=== PATIENT | male | born 1960 | race Caucasian/White ===

== ENCOUNTER → 2017-03-08 | Outpatient (CLI) | payer BC ==
--- NOTE | 2017-03-09 08:08 | REP ---
Clinical: Lung screening. History smoking. Technique: Axial noncontrast low-dose images from the thoracic inlet to the upper abdomen using lung screening technique. Comparison: Chest CT dated 02/07/2016. Findings: Lung ruiz are symmetric and relatively normal. No pulmonary nodule, consolidation, mass or suspicious abnormality appreciated. No pleural effusion. Tracheobronchial tree is patent. Impression: Lung-RADS category I. No suspicious abnormality or lesions appreciated. Recommendations include annual screening with low-dose CT. Signed by Jason Ny MD 03/09/2017 07:59 A
== END ==
LOC: M RAD 10:57
PROVIDERS: ATTEND Family Medicine
DX: Z87.891 Personal history of nicotine dependence (principal)

== ENCOUNTER → 2017-03-21 | Outpatient (CLI) | payer BC ==
[2017-03-21 14:26] LABS: ALBUMIN 4.1 GM/DL (3.2-5.2); ALBUMIN/GLOBULIN RATIO 1.21 (1.00-1.93); ALKALINE PHOSPHATASE 66 U/L (45-117); ALT/SGPT 110 U/L (12-78); ANION GAP 9 MEQ/L (8-16); AST/SGOT 69 U/L (15-37); BILIRUBIN,TOTAL 0.8 MG/DL (0.2-1.0); BLOOD UREA NITROGEN 16 MG/DL (7-18); CALCIUM LEVEL 9.4 MG/DL (8.5-10.1); CARBON DIOXIDE LEVEL 28 MEQ/L (21-32); CHLORIDE LEVEL 102 MEQ/L (98-107); CHOLESTEROL LEVEL 197 MG/DL (<200); CREATININE FOR GFR 0.99 MG/DL (0.70-1.30); GLOMERULAR FILTRATION RATE > 60.0 (>56); GLUCOSE, FASTING 115 MG/DL (70-105); POTASSIUM SERUM 4.8 MEQ/L (3.5-5.1); SODIUM LEVEL 139 MEQ/L (136-145); TOTAL PROTEIN 7.5 GM/DL (6.4-8.2); TRIGLYCERIDES LEVEL 233 MG/DL (<150)
[2017-03-23 00:06] LABS: Lyme Disease IgG/IgM Antibodie <0.91 ISR (0.00-0.90); Lyme Disease IgM Ab Quantitati <0.80 index (0.00-0.79)
== END ==
LOC: M SMT 08:39
PROVIDERS: ATTEND Physician Assistant Medical
DX: E78.5 Hyperlipidemia, unspecified (principal); E55.9 Vitamin D deficiency, unspecified; R73.01 Impaired fasting glucose; M79.1 Myalgia

== ENCOUNTER → 2018-01-04 | Outpatient (CLI) | payer BC ==
[2018-01-04 11:12] LABS: ANION GAP 9 MEQ/L (8-16); BLOOD UREA NITROGEN 19 MG/DL (7-18); CALCIUM LEVEL 9.1 MG/DL (8.5-10.1); CARBON DIOXIDE LEVEL 24 MEQ/L (21-32); CHLORIDE LEVEL 107 MEQ/L (98-107); CHOLESTEROL LEVEL 199 MG/DL (<200); CHOLESTEROL RISK RATIO 2.926 (<5); CREATININE FOR GFR 0.92 MG/DL (0.70-1.30); GLOMERULAR FILTRATION RATE > 60.0 (>56); GLUCOSE, FASTING 106 MG/DL (70-100); HDL CHOLESTEROL 68 MG/DL (>40); LDL CHOLESTEROL 103.4 MG/DL (<100); NON-HDL-C 131 MG/DL; POTASSIUM SERUM 4.5 MEQ/L (3.5-5.1); PSA SCREENING 2.23 NG/ML (< 4.0); SODIUM LEVEL 140 MEQ/L (136-145); TRIGLYCERIDES LEVEL 138 MG/DL (<150)
[2018-01-04 11:14] LABS: ESTIMATED AVERAGE GLUCOSE 117 MG/DL (60-110); HEMOGLOBIN A1c 5.7 %
== END ==
LOC: M SMT 09:00
DX: R73.01 Impaired fasting glucose (principal); R39.12 Poor urinary stream; E78.5 Hyperlipidemia, unspecified

== ENCOUNTER → 2019-06-13 | Outpatient (CLI) | payer BC ==
[2019-06-13 13:43] LABS: BASO % 0.4 % (0.0-1.0); EOS # 0.2 10^3/uL (0.0-0.50); HEMATOCRIT 45.3 % (42.0-52.0); HEMOGLOBIN 15.6 g/dl (13.5-17.5); LYMPH # 2.7 10^3/uL (1.5-4.5); LYMPH % 33.5 % (24.0-44.0); MEAN CORPUSCULAR HEMOGLOBIN 31.6 pg (27.0-33.0); MEAN CORPUSCULAR HGB CONC 34.4 g/dl (32.0-36.5); MEAN CORPUSCULAR VOLUME 91.9 fl (80.0-96.0); MONO # 0.6 10^3/uL (0.0-0.8); MONO % 7.6 % (0.0-5.0); NEUTROPHILS # 4.5 10^3/uL (1.8-7.7); NEUTROPHILS % 55.1 % (36.0-66.0); PLATELET COUNT, AUTOMATED 207 10^3/uL (150-450); RED BLOOD COUNT 4.93 10^6/uL (4.30-6.10); WHITE BLOOD COUNT 8.1 10^3/uL (4.0-10.0)
[2019-06-13 14:01] LABS: ALBUMIN 4.2 GM/DL (3.2-5.2); ALT/SGPT 62 U/L (12-78); BILIRUBIN,TOTAL 0.9 MG/DL (0.2-1.0); BLOOD UREA NITROGEN 15 MG/DL (7-18); CALCIUM LEVEL 9.5 MG/DL (8.5-10.1); CARBON DIOXIDE LEVEL 27 MEQ/L (21-32); CHLORIDE LEVEL 106 MEQ/L (98-107); CHOLESTEROL LEVEL 168 MG/DL (<200); CHOLESTEROL RISK RATIO 3.054 (<5); CREATININE FOR GFR 1.03 MG/DL (0.70-1.30); GLOMERULAR FILTRATION RATE > 60.0 (>56); GLUCOSE, FASTING 98 MG/DL (70-100); HDL CHOLESTEROL 55 MG/DL (>40); LDL CHOLESTEROL 84 MG/DL (<100); NON-HDL-C 113 MG/DL; POTASSIUM SERUM 4.6 MEQ/L (3.5-5.1); SODIUM LEVEL 138 MEQ/L (136-145); TOTAL 25(OH) VITAMIN D 54.8 NG/ML (30.0-100.0); TOTAL PROTEIN 7.2 GM/DL (6.4-8.2); TRIGLYCERIDES LEVEL 145 MG/DL (<150)
[2019-06-13 14:17] LABS: HEMOGLOBIN A1c 5.5 %
== END ==
LOC: M SMT 09:54
PROVIDERS: ATTEND Physician Assistant Medical
DX: Z00.00 Encounter for general adult medical examination without abnormal findings (principal); I10 Essential (primary) hypertension; R39.12 Poor urinary stream; E55.9 Vitamin D deficiency, unspecified; F41.3 Other mixed anxiety disorders; E78.5 Hyperlipidemia, unspecified; R73.01 Impaired fasting glucose; Z12.5 Encounter for screening for malignant neoplasm of prostate
CPT/HCPCS: 36415; 80053; 80061; 82306; 83036; 85025; G0103

== ENCOUNTER → 2019-10-02 | Outpatient (CLI) | payer BC ==
--- NOTE | 2019-10-03 05:25 | REP ---
Clinical: Lung screening. History smoking. Comparison: 03/08/2017 Technique: Axial low-dose noncontrast images from the thoracic inlet to the upper abdomen using lung screening technique. Findings: The lung ruiz are well-aerated. No consolidation, significant nodule or mass lesion is appreciated. No pleural effusion/reaction or pneumothorax. Tracheobronchial tree is patent. Mediastinum demonstrates mild atherosclerotic changes of the coronary arteries without cardiomegaly. Impression: Lung-RADS category I. No nodule or suspicious abnormality. Management recommendations include annual low-dose CT evaluation. Electronically Signed by Jason Ny MD 10/03/2019 05:17 A
== END ==
LOC: M RAD 08:44
PROVIDERS: ATTEND Family Medicine
DX: F17.200 Nicotine dependence, unspecified, uncomplicated (principal)

== ENCOUNTER → 2020-08-21 | Outpatient (CLI) | payer BC ==
[~2020-08-21] MED LIST: ALPR0.5T3 PO; HYDR200T3 PO; INFL10VL IV; LISI10TA4 PO; OMEP-221 PO; SIMV20TA22 PO; TERA5CAP3 PO; VITA50005 PO
[2020-08-21 11:34] LABS: BASO # 0.1 10^3/uL (0.0-0.2); BASO % 0.6 % (0.0-1.0); EOS # 0.3 10^3/uL (0.0-0.5); EOS % 2.7 % (0.0-3.0); HEMATOCRIT 45.2 % (42.0-52.0); HEMOGLOBIN 15.4 g/dl (13.5-17.5); LYMPH # 2.9 10^3/uL (1.5-5.0); LYMPH % 29.2 % (24.0-44.0); MEAN CORPUSCULAR HEMOGLOBIN 31.9 pg (27.0-33.0); MEAN CORPUSCULAR HGB CONC 34.1 g/dl (32.0-36.5); MEAN CORPUSCULAR VOLUME 93.6 fl (80.0-96.0); MONO # 0.7 10^3/uL (0.0-0.8); NEUTROPHILS % 59.8 % (36.0-66.0); PLATELET COUNT, AUTOMATED 213 10^3/uL (150-450); RED BLOOD COUNT 4.83 10^6/uL (4.30-6.10); WHITE BLOOD COUNT 10.1 10^3/uL (4.0-10.0)
[2020-08-21 11:59] LABS: ALT/SGPT 53 U/L (12-78); BILIRUBIN,TOTAL 0.4 MG/DL (0.2-1.0); BLOOD UREA NITROGEN 15 MG/DL (7-18); CALCIUM LEVEL 9.3 MG/DL (8.8-10.2); CARBON DIOXIDE LEVEL 29 MEQ/L (21-32); CHLORIDE LEVEL 105 MEQ/L (98-107); CHOLESTEROL LEVEL 182 MG/DL (<200); CHOLESTEROL RISK RATIO 3.714 (<5); CREATININE FOR GFR 0.92 MG/DL (0.70-1.30); GLOMERULAR FILTRATION RATE > 60.0 (>49); GLUCOSE, FASTING 103 MG/DL (70-100); HDL CHOLESTEROL 49 MG/DL (>40); HEMOGLOBIN A1c 5.1 %; LDL CHOLESTEROL 99 MG/DL (<100); NON-HDL-C 133 MG/DL; POTASSIUM SERUM 4.3 MEQ/L (3.5-5.1); SODIUM LEVEL 140 MEQ/L (136-145); TRIGLYCERIDES LEVEL 171 MG/DL (<150)
== END ==
LOC: M PLALAB 09:09
PROVIDERS: ATTEND Nurse Practitioner Family
DX: I10 Essential (primary) hypertension (principal)

== ENCOUNTER → 2021-03-03 | Outpatient (CLI) | payer BC ==
[~2021-03-03] MED LIST changes: +LISI10TA22 PO; -LISI10TA4 PO
--- NOTE | 2021-03-04 18:49 | REP ---
INDICATION: PERSONAL H/O NICOTINE DEPENDENCE COMPARISON: 10/02/2019, 03/08/2017 TECHNIQUE: Axial noncontrast images from the thoracic inlet to the upper abdomen using low-dose lung screening technique (LDCT). FINDINGS: Bilateral lung ruiz are well aerated and essentially clear/stable. No acute consolidation, significant nodule, or mass lesion. No effusion. No pneumothorax. Tracheobronchial tree is patent. IMPRESSION: Lung rads category 1. No suspicious lesion identified. Stable examination. Management recommendations include annual low-dose CT surveillance. <Electronically signed by Jason Ny > 03/04/21 [id number]
== END ==
LOC: M RAD 10:47
PROVIDERS: ATTEND Nurse Practitioner Family
DX: Z87.891 Personal history of nicotine dependence (principal)

== ENCOUNTER → 2021-09-28 | Outpatient (CLI) | payer BC ==
[~2021-09-28] MED LIST changes: +ERGO500029 PO; -VITA50005 PO
[2021-09-28 14:39] LABS: ALT/SGPT 89 U/L (12-78); BILIRUBIN,TOTAL 0.7 MG/DL (0.2-1.0); BLOOD UREA NITROGEN 14 MG/DL (7-18); CALCIUM LEVEL 9.5 MG/DL (8.8-10.2); CARBON DIOXIDE LEVEL 27 MEQ/L (21-32); CHLORIDE LEVEL 105 MEQ/L (98-107); CHOLESTEROL LEVEL 175 MG/DL (<200); CHOLESTEROL RISK RATIO 2.966 (<5); CREATININE FOR GFR 0.98 MG/DL (0.70-1.30); GLOMERULAR FILTRATION RATE > 60.0 (>49); GLUCOSE, FASTING 103 MG/DL (70-100); HDL CHOLESTEROL 59 MG/DL (>40); NON-HDL-C 116 MG/DL; POTASSIUM SERUM 4.3 MEQ/L (3.5-5.1); SODIUM LEVEL 140 MEQ/L (136-145); TRIGLYCERIDES LEVEL 202 MG/DL (<150)
[2021-09-28 14:40] LABS: LDL CHOLESTEROL 76 MG/DL (<100); TOTAL PROTEIN 7.3 GM/DL (6.4-8.2)
== END ==
LOC: M PLALAB 09:07
PROVIDERS: ATTEND Nurse Practitioner Family
DX: I10 Essential (primary) hypertension (principal)

== ENCOUNTER → 2021-12-28 | Outpatient (CLI) | payer BC ==
[~2021-12-28] MED LIST changes: -OMEP-221 PO; +OMEP40CA5 PO
== END ==
LOC: M RAD 09:38
PROVIDERS: ATTEND Nurse Practitioner Family
DX: R05.1 Acute cough (principal)

== ENCOUNTER → 2022-04-06 | Outpatient (CLI) | payer BC | LOC: M RAD 08:19 | PROVIDERS: ATTEND Nurse Practitioner Family | DX: Z12.2 Encounter for screening for malignant neoplasm of respiratory organs (principal); F17.210 Nicotine dependence, cigarettes, uncomplicated ==

== ENCOUNTER → 2022-09-30 | Outpatient (CLI) | payer BC ==
[2022-09-30 14:56] LABS: BASO % 0.5 % (0.0-1.0); EOS # 0.2 10^3/uL (0.0-0.5); EOS % 2.2 % (0.0-3.0); HEMATOCRIT 43.3 % (42.0-52.0); HEMOGLOBIN 14.6 g/dl (13.5-17.5); LYMPH # 2.7 10^3/uL (1.5-5.0); LYMPH % 33.3 % (24.0-44.0); MEAN CORPUSCULAR HEMOGLOBIN 32.2 pg (27.0-33.0); MEAN CORPUSCULAR HGB CONC 33.7 g/dl (32.0-36.5); MEAN CORPUSCULAR VOLUME 95.6 fl (80.0-96.0); MONO # 0.6 10^3/uL (0.0-0.8); MONO % 7.4 % (2.0-8.0); NEUTROPHILS # 4.5 10^3/uL (1.5-8.5); NEUTROPHILS % 56.1 % (36.0-66.0); PLATELET COUNT, AUTOMATED 190 10^3/uL (150-450); RED BLOOD COUNT 4.53 10^6/uL (4.30-6.10); WHITE BLOOD COUNT 8.1 10^3/uL (4.0-10.0)
[2022-09-30 15:34] LABS: ALBUMIN 4.1 GM/DL (3.2-5.2); ALT/SGPT 64 U/L (12-78); BILIRUBIN,TOTAL 0.5 MG/DL (0.2-1.0); BLOOD UREA NITROGEN 18 MG/DL (7-18); CALCIUM LEVEL 9.4 MG/DL (8.8-10.2); CARBON DIOXIDE LEVEL 24 MEQ/L (21-32); CHLORIDE LEVEL 105 MEQ/L (98-107); CHOLESTEROL LEVEL 183 MG/DL (<200); CHOLESTEROL RISK RATIO 3.155 (<5); CREATININE FOR GFR 0.91 MG/DL (0.70-1.30); GLOMERULAR FILTRATION RATE > 60.0 (>49); GLUCOSE, FASTING 109 MG/DL (70-100); HDL CHOLESTEROL 58 MG/DL (>40); LDL CHOLESTEROL 87 MG/DL (<100); NON-HDL-C 125 MG/DL; POTASSIUM SERUM 4.6 MEQ/L (3.5-5.1); SODIUM LEVEL 136 MEQ/L (136-145); TOTAL PROTEIN 7.4 GM/DL (6.4-8.2); TRIGLYCERIDES LEVEL 191 MG/DL (<150)
== END ==
LOC: M PLALAB 09:12
PROVIDERS: ATTEND Nurse Practitioner Family
DX: I10 Essential (primary) hypertension (principal)

== ENCOUNTER → 2022-10-27 | Outpatient (CLI) | payer BC ==
[2022-10-27 14:21] LABS: HEMOGLOBIN A1c 4.9 % (4.0-6.0)
== END ==
LOC: M PLALAB 09:24
PROVIDERS: ATTEND Nurse Practitioner Family
DX: R73.01 Impaired fasting glucose (principal)

== ENCOUNTER → 2023-03-15 | Outpatient (CLI) | payer BC ==
[2023-03-15 14:30] LABS: ALBUMIN 4.3 G/DL (3.2-5.2); ALKALINE PHOSPHATASE 55 U/L (46-116); ALT/SGPT 79 U/L (7.0-40); AST/SGOT 55 U/L (<34); BILIRUBIN,TOTAL 0.8 MG/DL (0.3-1.2); BLOOD UREA NITROGEN 17 MG/DL (9-23); CALCIUM LEVEL 9.9 MG/DL (8.3-10.6); CARBON DIOXIDE LEVEL 26 MMOL/L (20-31); CHLORIDE LEVEL 102 MMOL/L (98-107); CHOLESTEROL LEVEL 181 MG/DL (<200); CHOLESTEROL RISK RATIO 3.47 (<5); CREATININE FOR GFR 0.86 MG/DL (0.70-1.30); GLOMERULAR FILTRATION RATE > 60.0 (>49); GLUCOSE, FASTING 74 MG/DL (74-106); HDL CHOLESTEROL 52.1 MG/DL (>40); LDL CHOLESTEROL 83.9 MG/DL (<100); NON-HDL-C 128.9 MG/DL; POTASSIUM SERUM 4.3 MMOL/L (3.5-5.1); SODIUM LEVEL 136 MMOL/L (136-145); TOTAL PROTEIN 7.5 G/DL (5.7-8.2); TRIGLYCERIDES LEVEL 225 MG/DL (<150)
[2023-03-16 23:07] LABS: PSA TOTAL 3.7 ng/mL (0.0-4.0)
== END ==
LOC: M PLALAB 11:30
PROVIDERS: ATTEND Registered Nurse
DX: R97.20 Elevated prostate specific antigen [PSA] (principal); I10 Essential (primary) hypertension; E55.9 Vitamin D deficiency, unspecified; E78.2 Mixed hyperlipidemia

== ENCOUNTER → 2023-03-29 | Outpatient (CLI) | payer BC | LOC: M RAD 09:31 | PROVIDERS: ATTEND Nurse Practitioner Family | DX: Z12.2 Encounter for screening for malignant neoplasm of respiratory organs (principal); F17.200 Nicotine dependence, unspecified, uncomplicated ==

== ENCOUNTER → 2024-04-03 | Outpatient (CLI) | payer BC ==
[~2024-04-03] MED LIST changes: -HYDR200T3 PO; +HYDR200T46 PO
== END ==
LOC: M RAD 09:09
PROVIDERS: ATTEND Registered Nurse
DX: Z87.891 Personal history of nicotine dependence (principal)

== ENCOUNTER → 2024-04-24 | Outpatient (CLI) | payer BC ==
[~2024-04-24] MED LIST changes: +LOSA25TA13 PO; +PROA1AER2 INH
[2024-04-24 13:29] LABS: BASO % 0.5 % (0.0-1.0); EOS # 0.2 10^3/uL (0.0-0.5); EOS % 1.9 % (0.0-3.0); HEMOGLOBIN 15.5 g/dl (13.5-17.5); LYMPH # 2.2 10^3/uL (1.5-5.0); MEAN CORPUSCULAR HEMOGLOBIN 31.9 pg (27.0-33.0); MEAN CORPUSCULAR HGB CONC 34.4 g/dl (32.0-36.5); MEAN CORPUSCULAR VOLUME 92.6 fl (80.0-96.0); MONO # 0.7 10^3/uL (0.0-0.8); MONO % 8.9 % (2.0-8.0); NEUTROPHILS # 5.2 10^3/uL (1.5-8.5); NEUTROPHILS % 62.3 % (36.0-66.0); PLATELET COUNT, AUTOMATED 211 10^3/uL (150-450); RED BLOOD COUNT 4.86 10^6/uL (4.30-6.10); WHITE BLOOD COUNT 8.3 10^3/uL (4.0-10.0)
[2024-04-24 14:05] LABS: ALBUMIN 4.2 G/DL (3.2-5.2); ALKALINE PHOSPHATASE 61 U/L (46-116); ALT/SGPT 56 U/L (7.0-40); AST/SGOT 36 U/L (<34); BILIRUBIN,TOTAL 0.9 MG/DL (0.3-1.2); BLOOD UREA NITROGEN 13 MG/DL (9-23); CALCIUM LEVEL 9.7 MG/DL (8.3-10.6); CARBON DIOXIDE LEVEL 25 MMOL/L (20-31); CHLORIDE LEVEL 106 MMOL/L (98-107); CHOLESTEROL LEVEL 166 MG/DL (<200); CHOLESTEROL RISK RATIO 2.89 (<5); GLOMERULAR FILTRATION RATE > 60.0 (>49); GLUCOSE, FASTING 93 MG/DL (74-106); HDL CHOLESTEROL 57.3 MG/DL (>40); LDL CHOLESTEROL 72.7 MG/DL (<100); NON-HDL-C 108.7 MG/DL; POTASSIUM SERUM 4.5 MMOL/L (3.5-5.1); SODIUM LEVEL 138 MMOL/L (136-145); TOTAL 25(OH) VITAMIN D 69.1 NG/ML (20.0-100.0); TOTAL PROTEIN 7.1 G/DL (5.7-8.2); TRIGLYCERIDES LEVEL 180 MG/DL (<150)
[2024-04-25 20:18] LABS: PSA TOTALX 3.5 ng/mL (0.0-4.0)
== END ==
LOC: M PLALAB 09:49
PROVIDERS: ATTEND Registered Nurse
DX: I10 Essential (primary) hypertension (principal)

== ENCOUNTER → 2024-05-03 | Outpatient (CLI) | payer BC ==
[~2024-05-03] MED LIST changes: +GASTROGRAFIN SOLUTION 30ML As Ordered ONE; +ISOVUE-370 76% 100ML VIAL As Ordered ONE
== END ==
LOC: M RAD 15:17
PROVIDERS: ATTEND Registered Nurse
DX: K76.0 Fatty (change of) liver, not elsewhere classified (principal); N40.0 Benign prostatic hyperplasia without lower urinary tract symptoms; I51.7 Cardiomegaly; R10.32 Left lower quadrant pain
CPT/HCPCS: 74177; Q9963; Q9967

== ENCOUNTER 2024-05-09 08:37 | Day surgery (SDC) | payer BC ==
[~2024-05-09] VITALS: Ht 180.3 cm; Wt 97.5 kg
[~2024-05-09 08:37] MED LIST changes: -GASTROGRAFIN SOLUTION 30ML As Ordered ONE; -ISOVUE-370 76% 100ML VIAL As Ordered ONE; +NS 1,000 ML IV ONE
[2024-05-09] MEDS ORDERED: fentaNYL 100 MCG/2 ML INJECTION As Ordered ONE (09:14)
[2024-05-09] MEDS ORDERED: LIDOCAINE 2% 100MG/5ML SDV (FOR ANES.) As Ordered ONE (09:48)
[2024-05-09] MEDS ORDERED: propofoL 200 MG/20 ML VIAL As Ordered ONE (09:48)
[2024-05-09] MEDS ORDERED: GLYCOPYRROLATE INJ 0.2 MG/ML 2 ML VIAL As Ordered ONE (09:59)
[2024-05-09 10:12] VITALS: TEMP 97.9
[2024-05-09 10:30] VITALS: BP 125/87; O2SAT 97
== END 2024-05-09 10:36 | disposition home or self-care (01) ==
LOC: M OPP 08:37
PROVIDERS: ATTEND Surgery
DX: Z12.11 Encounter for screening for malignant neoplasm of colon (principal); Z86.010 Personal history of colon polyps; D12.6 Benign neoplasm of colon, unspecified; K44.9 Diaphragmatic hernia without obstruction or gangrene; K31.89 Other diseases of stomach and duodenum; K31.7 Polyp of stomach and duodenum; R13.10 Dysphagia, unspecified; F17.290 Nicotine dependence, other tobacco product, uncomplicated; Z79.02 Long term (current) use of antithrombotics/antiplatelets; Z79.51 Long term (current) use of inhaled steroids; Z79.620 Long term (current) use of immunosuppressive biologic; Z79.899 Other long term (current) drug therapy; Z91.013 Allergy to seafood
CPT/HCPCS: 43239; 45385; 88305; J3010

== ENCOUNTER → 2025-03-19 | Outpatient (CLI) | payer BC ==
[~2025-03-19] MED LIST changes: -NS 1,000 ML IV ONE
[2025-03-19 10:55] LABS: BASO # 0.1 10^3/uL (0.0-0.2); BASO % 0.8 % (0.0-1.0); EOS # 0.3 10^3/uL (0.0-0.5); EOS % 3.5 % (0.0-3.0); HEMATOCRIT 43.7 % (42.0-52.0); LYMPH # 2.6 10^3/uL (1.5-5.0); LYMPH % 33.2 % (24.0-44.0); MEAN CORPUSCULAR HEMOGLOBIN 31.1 pg (27.0-33.0); MEAN CORPUSCULAR HGB CONC 34.3 g/dl (32.0-36.5); MEAN CORPUSCULAR VOLUME 90.7 fl (80.0-96.0); MONO # 0.6 10^3/uL (0.0-0.8); MONO % 7.3 % (2.0-8.0); NEUTROPHILS # 4.4 10^3/uL (1.5-8.5); NEUTROPHILS % 54.8 % (36.0-66.0); PLATELET COUNT, AUTOMATED 222 10^3/uL (150-450); RED BLOOD COUNT 4.82 10^6/uL (4.30-6.10); WHITE BLOOD COUNT 7.9 10^3/uL (4.0-10.0)
[2025-03-19 11:07] LABS: HEMOGLOBIN A1c 5.4 % (4.0-6.0)
[2025-03-19 11:19] LABS: ALKALINE PHOSPHATASE 57 U/L (40-129); ALT/SGPT 71 U/L (7.0-40); AST/SGOT 49 U/L (<34); BILIRUBIN,TOTAL 0.9 MG/DL (0.3-1.2); BLOOD UREA NITROGEN 16 MG/DL (9-23); CALCIUM LEVEL 9.5 MG/DL (8.3-10.6); CARBON DIOXIDE LEVEL 27 MMOL/L (20-31); CHLORIDE LEVEL 104 MMOL/L (98-107); CHOLESTEROL LEVEL 182 MG/DL (<200); CHOLESTEROL RISK RATIO 3.27 (<5); CREATININE FOR GFR 0.85 MG/DL (0.70-1.30); GLOMERULAR FILTRATION RATE > 90.0 (>49); GLUCOSE, FASTING 108 MG/DL (74-106); HDL CHOLESTEROL 55.6 MG/DL (>40); LDL CHOLESTEROL 83.4 MG/DL (<100); NON-HDL-C 126.4 MG/DL; POTASSIUM SERUM 4.3 MMOL/L (3.5-5.1); SODIUM LEVEL 141 MMOL/L (136-145); TRIGLYCERIDES LEVEL 215 MG/DL (<150)
[2025-03-21 10:02] LABS: PSA FREE 0.9 ng/mL; PSA TOTAL 3.3 ng/mL (< OR = 4.0)
== END ==
LOC: M PLALAB 09:04
PROVIDERS: ATTEND Registered Nurse
DX: R97.20 Elevated prostate specific antigen [PSA] (principal)

== ENCOUNTER → 2025-09-24 | Outpatient (CLI) | payer BC ==
[~2025-09-24] MED LIST changes: +PROHANCE 279.3MG/ML 15ML VIAL As Ordered ONE; +PROHANCE 279.3MG/ML 5ML VIAL As Ordered ONE
== END ==
LOC: M RAD 07:59
PROVIDERS: ATTEND Registered Nurse
DX: G31.84 Mild cognitive impairment of uncertain or unknown etiology (principal)